=== PATIENT | female | born 1965 | race Caucasian/White ===

== ENCOUNTER 2016-10-23 07:27 | Inpatient (IN) ==
[2016-10-23] MEDS ORDERED: SODIUM CHLORIDE 0.9% 2,000 ML IV STA (07:47)
[2016-10-23] MEDS ORDERED: ONDANSETRON 4 MG/2 ML VIAL IV STA (07:47)
[2016-10-23] MEDS ORDERED: ONDANSETRON 4 MG/2 ML VIAL ONE (07:57)
[2016-10-23 08:13] LABS: Basophils # 0.1 10*3/uL (0.0-0.2); Basophils % 0.4 % (0.0-0.8); Hematocrit 46.7 VOL% (35.7-47.0); Hemoglobin 15.3 GM/DL (12.0-16.0); Immature Granulocytes % 0.5 %; Immature Granulocytes Absolute 0.07 #; Lymphocytes # 0.6 10*3/uL (1.4-4.0); Mean Corpuscular HGB Conc 32.8 GM/DL (32-36); Mean Corpuscular Hemoglobin 28 PG (27-34); Mean Corpuscular Volume 86.2 FL (87-102); Mean Platelet Volume 9.3 FL (9.6-12.0); Monocytes # 0.5 10*3/uL (0.11-0.8); Monocytes % 2.9 % (1.7-12.7); Neutrophils # 14.2 10*3/uL (1.4-7.4); Neutrophils % 92.2 % (38.7-73.9); Platelet Count 260 T/CUMM (130-400); Red Blood Count 5.42 MC/CUMM (3.8-5.5); Red Cell Distribution Width 12.4 % (9.3-17.3); White Blood Count 15.4 T/CUMM (4-12)
[2016-10-23 08:32] LABS: Band Neutrophils 1 % (0-10); Hypochromasia 1+; Lymphocytes 9 % (20-55); Platelet Estimate Normal; Segmented Neutrophils 89 % (50-85); Total Cells Counted 100
[2016-10-23 08:57] LABS: Albumin 3.9 G/DL (3.4-5.0); Bilirubin,Total 0.6 MG/DL (0.2-1.0); Calcium 9.7 MG/DL (8.5-10.1); Osmolality,Calculated 281.5 MOS/KG (273-304); Potassium 4.3 MMOL/L (3.5-5.1); Total Protein 7.6 G/DL (6.4-8.3)
[2016-10-23] MEDS ORDERED: LEVOFLOXACIN INJ 750 MG in PREMIX 1 EACH IV STA (09:22)
[2016-10-23] MEDS ORDERED: LEVOFLOXACIN INJ 150 ML IV ONE (09:37)
[2016-10-23 09:42] LABS: Apearance,Urine CLEAR (Clear); Bilirubin,Urine Negative (Negative); Blood, Urine Negative (Negative); Glucose,Urine (UA) Negative (Negative); Hyaline Casts,Urine 6 /LPF (0-3); Ketones,Urine Negative (Negative); Mucus,Urine Occasional /LPF (Occasional); Nitrite,Urine Negative (Negative); Protein,Urine Negative; RBC,Urine 1 /HPF (0-4); Urine Color Yellow (Yellow); Urine Urobilinogen < 2.0 EU/DL (0.2-1.0); WBC,Urine <1 /HPF (0-6)
--- NOTE | 2016-10-23 10:19 | Emergency Department Note ---
Hudson Estevez Jamie, am scribing for, and in the presence of, Francisco Hudson MD 07:31. Tristan Estevez Doug C, MD, personally performed the services described in this documentation, ascribed by Hiren Treviño in my presence, and it is both accurate and complete . Arrival - Arrival Stated Complaint: n/v/d Limitations: No Limitations Source: Patient, RN Notes Reviewed - History of Present Illness HPI Narrative: Patient is a 51-year-old white female presents to emergency room complaining of persistent nausea vomiting and diarrhea which began yesterday. Patient states her diarrhea is profuse she is uncertain of how many bowel movements she has had today. She denies any associated fever with this and has not really had any abdominal pain. She has not seen any blood or mucus in her stool. She has no history of any ill contacts and states she has not had any family history or personal history of inflammatory bowel disease patient states her appetite is diminished she has been unable to keep much of anything down. Onset (ago): day(s) (1) Consistency: constant Severity: moderate Allergies/Adverse Reactions: Allergies Allergy/AdvReac Type Severity Reaction Status Date / Time Penicillins Allergy Unknown Unknown/Unable Verified 03/24/15 08:16 to obtain Review of System - Review of System 12 point system: reviewed and no additional remarkable complaints except as stated - Review of System Constitutional: Absent: chills, diaphoresis, fever, weakness Eyes: Absent: vision change Respiratory: Absent: cough Cardiovascular: Absent: chest pain Gastrointestinal: Present: nausea, vomiting, diarrhea Musculoskeletal: Present: lower back pain. Absent: joint swelling Skin: Absent: rash, change in color Neurological: Absent: headache, weakness, numbness, confusion Hematological/Lymphatic: Absent: easy bleeding, easy bruising Medical,Surgical,& Family Hx - Medical History Endocrine: History of: Thyroid Disorder - Surgical History HEENT Surgeries: Surgical HX of: Thyroid Surgery Abdominal Surgeries: Surgical HX of: Appendectomy, Cholecystectomy Reproductive Surgeries: Surgical HX of;: Section - Family History Family History: Reports;: Family Cancer (Father of biliary cancer and mother of lung cancer.) Exam Vital Signs: Vital Signs Temperature 97.0 F L 10/23/16 07:35 Pulse Rate 101 H 10/23/16 08:15 Respiratory Rate 19 10/23/16 07:35 Blood Pressure 143/89 10/23/16 08:15 O2 Sat by Pulse Oximetry 96 10/23/16 08:15 - General General appearance: alert, in no apparent distress - Head Head exam: Present: atraumatic, normocephalic, normal inspection - Eye Eye exam: Present: normal appearance, PERRL, EOMI - ENT ENT exam: Present: normal exam, normal oropharynx, mucous membranes dry - Neck Neck exam: Present: normal inspection, full ROM - Chest Chest inspection: Present: normal inspection, symmetric chest wall rise - Respiratory Respiratory exam: Present: normal lung sounds bilaterally - Cardiovascular Cardiovascular exam: Present: regular rate, normal rhythm, normal heart sounds - Abdominal Exam Abdominal exam: Present: soft, normal bowel sounds - Extremities Exam Extremities exam: Present: normal inspection, full ROM - Neurological Exam Neurological exam: Present: alert, oriented X3, CN II-XII intact, reflexes normal - Psychiatric Psychiatric exam: Present: normal affect, normal mood - Skin Skin exam: Present: warm, dry, intact, normal color Course Course Narrative: Patient's clinical presentation, laboratory findings and response to IV fluids were discussed with Dr. Thao Phillips. Patient will be admitted to her services Results - Labs CBC & BMP: 10/23/16 07:46 10/23/16 07:46 Lab Results: I have reviewed the patients labs Disposition Clinical Impression: Acute gastroenteritis Case discussed with: patient Disposition: Still a Patient Condition: Stable Time of Disposition: 10:12
[2016-10-23] MEDS: LEVOFLOXACIN INJ 500 MG in PREMIX 1 EACH IV SCH (11:18)
[2016-10-23] MEDS: DEXTROSE 5% NACL 0.9% 1,000 ML IV SCH ×3 (11:18→22:28)
[2016-10-23] MEDS: ONDANSETRON 4 MG/2 ML VIAL IV PRN (11:18)
--- NOTE | 2016-10-23 11:20 | Internal Med History&Physical ---
Assessment and Plan (1) Hypertension Status: Chronic Current Visit: No Qualifiers: Hypertension type: essential hypertension Qualified Code(s): I10 - Essential (primary) hypertension (2) Acute gastroenteritis Status: Acute Current Visit: Yes History of Present Illness Chief complaint: acute diarrhea History of present illness: Ms. Verduzco is a 51 year old female patient of Dr. Fitzgerald with history of hypothyroidism, HTN, acid reflux, who presented to ER with severe diarrhea and was admitted to receive IV fluids. She was found to be tachycardic in ER. She denies any changes in diet or travel prior to her acute illness. Home Medications Medication Instructions Recorded Confirmed Type Estradiol Tab [Estrace Tab] 1 mg PO QAM 10/23/16 10/23/16 History Irbesartan [Avapro] 150 mg PO QAM 10/23/16 10/23/16 History Levothyroxine Tab [Synthroid Tab] 175 mcg PO DAILY@0700 10/23/16 10/23/16 History Ranitidine Tab [Zantac Tab] 150 mg PO BID 10/23/16 10/23/16 History Allergies Allergy/AdvReac Type Severity Reaction Status Date / Time Penicillins Allergy Unknown Unknown/Unable Verified 03/24/15 08:16 to obtain Medical,Surgical,& Family Hx - Medical History Cardio: History of: Hypertension Endocrine: History of: Thyroid Disorder Gastrointestinal: History of: GERD - Surgical History HEENT Surgeries: Surgical HX of: Thyroid Surgery Abdominal Surgeries: Surgical HX of: Appendectomy, Cholecystectomy Reproductive Surgeries: Surgical HX of;: Section - Family History Family History: Reports;: Family Cancer (Father of biliary cancer and mother of lung cancer.) - Social History Smoking Status: Never smoker Frequency of Alcohol Use: None Type of Drug Use: None Functional capacity: independent ambulation - Constitutional Constitutional: Present: chills, fatigue, malaise - Cardiovascular Cardiovascular: Present: palpitations - Gastrointestinal Gastrointestinal: Present: diarrhea - Musculoskeletal Musculoskeletal: Present: myalgias Exam - Constitutional Vitals: Period Temp Pulse Resp BP Sys/James Pulse Ox Last 24 Hr 112 18 155/99 96 General appearance: no acute distress - Head Head exam: Present: normocephalic - Eye Eye exam: Present: EOMI - Respiratory Respiratory exam: Present: clear to auscultation bilaterally - Cardiovascular Cardiovascular exam: Present: regular rate and rhythm - GI/Abdominal GI/Abdominal exam: Present: hyperactive bowel sounds, tenderness, soft - Extremities Exam Extremities exam: Absent: edema - Neurological Exam Neurological exam: Present: alert, oriented X3, CN II-XII intact - Psychiatric Psychiatric exam: Present: normal mood - Skin Skin exam: Present: dry Results - Labs CBC & BMP: 10/23/16 07:46 10/23/16 07:46
[2016-10-23] MEDS: ENOXAPARIN 40 MG/0.4 ML SYRINGE SUBCUT SCH (11:37)
[2016-10-23] MEDS: ACETAMINOPHEN 325 MG TABLET PO PRN (20:45)
[2016-10-23] MEDS: DOCUSATE SODIUM 100 MG CAPSULE PO SCH (21:28)
[2016-10-24] MEDS: ONDANSETRON 4 MG/2 ML VIAL IV PRN ×2 (02:05→23:18)
[2016-10-24] MEDS: DEXTROSE 5% NACL 0.9% 1,000 ML IV SCH ×7 (03:22→20:56)
[2016-10-24 07:04] LABS: Basophils % 0.3 % (0.0-0.8); Eosinophils % 0.1 % (0.00-10.9); Hematocrit 34.7 VOL% (35.7-47.0); Immature Granulocytes % 0.6 %; Immature Granulocytes Absolute 0.04 #; Lymphocytes # 0.7 10*3/uL (1.4-4.0); Lymphocytes % 9.8 % (21.3-54.2); Mean Corpuscular HGB Conc 32.3 GM/DL (32-36); Mean Corpuscular Hemoglobin 29 PG (27-34); Mean Corpuscular Volume 88.7 FL (87-102); Mean Platelet Volume 9.3 FL (9.6-12.0); Monocytes # 0.5 10*3/uL (0.11-0.8); Monocytes % 7.5 % (1.7-12.7); Neutrophils # 5.9 10*3/uL (1.4-7.4); Neutrophils % 81.7 % (38.7-73.9); Red Cell Distribution Width 12.9 % (9.3-17.3)
[2016-10-24 07:11] LABS: White Blood Count 7.2 T/CUMM (4-12)
[2016-10-24 07:12] LABS: Hemoglobin 11.2 GM/DL (12.0-16.0); Platelet Count 152 T/CUMM (130-400); Red Blood Count 3.91 MC/CUMM (3.8-5.5)
[2016-10-24 07:21] LABS: Calcium 6.9 MG/DL (8.5-10.1); Osmolality,Calculated 289.7 MOS/KG (273-304); Potassium 3.7 MMOL/L (3.5-5.1)
[2016-10-24] MEDS: DOCUSATE SODIUM 100 MG CAPSULE PO SCH ×2 (09:19→20:55)
[2016-10-24] MEDS: PANTOPRAZOLE 40 MG TABLET PO SCH (09:19)
[2016-10-24] MEDS: LEVOFLOXACIN INJ 500 MG in PREMIX 1 EACH IV SCH (10:07)
[2016-10-24] MEDS: ENOXAPARIN 40 MG/0.4 ML SYRINGE SUBCUT SCH (10:07)
--- NOTE | 2016-10-24 14:34 | Internal Med Progress Note ---
Assessment and Plan (1) Hypertension Status: Chronic Current Visit: No Qualifiers: Hypertension type: essential hypertension Qualified Code(s): I10 - Essential (primary) hypertension (2) Acute gastroenteritis Status: Acute Current Visit: Yes Internal Medicine - PN: Subj Interval history: Ms. Verduzco is a 51 year old female patient of Dr. Fitzgerald with history of hypothyroidism, HTN, acid reflux, who presented to ER with severe diarrhea and was admitted to receive IV fluids. She was found to be tachycardic in ER. She is feeling better today, Monday, but still having multiple episodes of diarrhea. Will continue IV fluids, but advance diet to soft solids. Exam (Progress Note) - Constitutional Vitals: Period Temp Pulse Resp BP Sys/James Pulse Ox Last 24 Hr 97.6 F-98.6 F 67-99 18-19 132-162/63-84 95-99 Exam: General appearance: no acute distress - Respiratory Respiratory exam: Present: clear to auscultation bilaterally - Cardiovascular Cardiovascular exam: Present: regular rate and rhythm - GI/Abdominal GI/Abdominal exam: Present: hyperactive bowel sounds, tenderness, soft - Extremities Exam Extremities exam: Absent: edema - Neurological Exam Neurological exam: Present: alert, oriented X3, CN II-XII intact - Psychiatric Psychiatric exam: Present: normal mood - Skin Skin exam: Present: dry Vitals reviewed. Results - Labs CBC & BMP: 10/24/16 05:45 10/24/16 05:45
[2016-10-24] MEDS: CALCIUM (CITRATE) 200 MG TABLET PO SCH (14:58)
[2016-10-24] MEDS: ACETAMINOPHEN 325 MG TABLET PO PRN (22:14)
[2016-10-25] MEDS: DEXTROSE 5% NACL 0.9% 1,000 ML IV SCH ×3 (02:49→13:42)
[2016-10-25] MEDS ORDERED: LEVOTHYROXINE 175 MCG TABLET PO SCH (07:00)
[2016-10-25 07:20] LABS: Alanine Aminotransferase 27 U/L (13-56); Albumin 2.5 G/DL (3.4-5.0); Alkaline Phosphatase 51 U/L (45-117); Aspartate Amino Transferase 29 U/L (0-37); Bilirubin,Total < 0.39 MG/DL (0.2-1.0); Blood Urea Nitrogen 5 MG/DL (7-18); Calcium 6.7 MG/DL (8.5-10.1); Glucose 113 MG/DL (74-106); Magnesium 2.1 MG/DL (1.8-2.4); Osmolality,Calculated 291.3 MOS/KG (273-304); Potassium 3.9 MMOL/L (3.5-5.1); Sodium 148 MMOL/L (136-145)
[2016-10-25] MEDS ORDERED: IRBESARTAN 150 MG TABLET PO SCH (09:00)
[2016-10-25] MEDS: CALCIUM (CITRATE) 200 MG TABLET PO SCH (09:21)
[2016-10-25] MEDS: PANTOPRAZOLE 40 MG TABLET PO SCH (09:21)
[2016-10-25] MEDS: DOCUSATE SODIUM 100 MG CAPSULE PO SCH (09:22)
[2016-10-25] MEDS: ENOXAPARIN 40 MG/0.4 ML SYRINGE SUBCUT SCH (10:14)
[2016-10-25] MEDS: LEVOFLOXACIN INJ 500 MG in PREMIX 1 EACH IV SCH (10:15)
--- NOTE | 2016-10-25 11:10 | Physician Query Form ---
CLICK EDIT DOCUMENT TO SELECT QUERY ANSWER --> OK --> SIGN Florinda Small RN Clinical Bilingual Social Worker W) [phone] (f) [phone] [email or web address]: Make your selection(s) from the choices in EACH section by typing an "x" and enter comments in the comment section. Please use your independent medical judgment in providing your response. This request does not imply that any particular answer is desired or expected. CLINICAL INDICATORS: (Providers should not edit this section) Based on documentation of "Persistent nausea and vomiting and diarrhea" "Acute gastroenteritis" "Admitted to receive IV Fluids" Creatinine from 1.10 to 0.60. GFR from 67 to 126. Treated with NS bolus followed by D5 NS infusion. Clarify which of the following most accurately represents the patient's renal status: ( ) Acute kidney injury (non-traumatic) ( ) Acute renal failure ( ) Acute renal failure with underlying Chronic Kidney Disease (CKD) - please provide stage below ( ) Acute renal failure with pathological renal lesion ( ) Acute renal failure with necrosis ( ) tubular ( ) medullary ( ) cortical ( ) CKD - please provide stage below ( ) End Stage Renal Disease ( ) Acute interstitial nephritis ( ) Hepatorenal syndrome (x ) Other, please specify: dehydration ( ) Clinically unable to determine Chronic Kidney Disease Stages Source: National Kid[employer] Foundation ( ) Stage I (eGFR > or = 90) ( ) Stage II (eGFR 60 - 89) ( ) Stage III (eGFR 30 - 59) ( ) Stage IV (eGFR 15 - 29) ( ) Stage V (eGFR < 15 or dialysis) COMMENTS: Use of terms such as suspected, likely, or probable (associated with a specific diagnosis that is being evaluated, monitored, or treated as if it exists) are acceptable and can be restated in the discharge summary if not ruled out. MTDD
[2016-10-25 16:36] VITALS: BP 127/72
--- NOTE | 2016-10-25 18:55 | Discharge Summary ---
Hospital Course - Hospital Course Hospital Course: Ms. Verduzco is a 51 year old female patient of Dr. Fitzgerald with history of hypothyroidism, HTN, acid reflux, who presented to ER with severe diarrhea and was admitted to receive IV fluids. She was found to be tachycardic in ER. She responded well to fluids and diarrhea gradually resolved over the last 24 hours. She is ready for discharge to home. Diagnosis - Discharge Diagnosis (1) Hypertension Status: Chronic (2) Acute gastroenteritis Status: Resolved Specialty Discharge - Follow Up or Referrals Discharge Plan - Discharge Data Disposition: Disch To Home/Self Care Condition at Discharge: Stable Discharge Diet: other (soft solids and fluids another day or two) Activity: resume usual activities as tolerated - Discharge Medications New Acetaminophen Tab [Tylenol Tab] 650 mg PO Q6H PRN #0 tablet PRN Reason: Fever > 100.4 Or Headache Calcium (Citrate) [Citracal] 400 mg PO DAILY tablet Docusate Sodium Cap [Colace Cap] 100 mg PO BID capsule Continue Levothyroxine Tab [Synthroid Tab] 175 mcg PO DAILY@0700 Irbesartan [Avapro] 150 mg PO QAM Estradiol Tab [Estrace Tab] 1 mg PO QAM Ranitidine Tab [Zantac Tab] 150 mg PO BID - Follow Up or Referral Follow Up: Morgan Fitzgerald MD [Physician] - - Forms/Instructions Instructions: Gastroenteritis (DC) Additional Discharge Instructions: Follow up with Dr. Fitzgerald within 1-2 weeks. Repeat CMP at [facility] on morning for Dr. Fitzgerald to see. Exam - Constitutional Vitals: Period Temp Pulse Resp BP Sys/James Pulse Ox Last 24 Hr 97.5 F-98.1 F 58-68 18-20 112-149/63-78 95-99 Exam: General appearance: no acute distress - Respiratory Respiratory exam: Present: clear to auscultation bilaterally - Cardiovascular Cardiovascular exam: Present: regular rate and rhythm - GI/Abdominal GI/Abdominal exam: Present: normal bowel sounds, tenderness, soft - Extremities Exam Extremities exam: Absent: edema - Neurological Exam Neurological exam: Present: alert, oriented X3, CN II-XII intact - Psychiatric Psychiatric exam: Present: normal mood - Skin Skin exam: Present: dry Vitals reviewed. Discharge Results Labs on day of discharge: Labs from last 24 hours 10/25/16 06:06 Sodium 148 H Potassium 3.9 Chloride 114 H Carbon Dioxide 22 Anion Gap 15.9 H BUN 5 L Creatinine 0.60 GFR Calculation 126 BUN/Creatinine Ratio 8.00 Glucose 113 H Calculated Osmolality 291.3 Calcium 6.7 L Magnesium 2.1 Total Bilirubin < 0.39 AST 29 ALT 27 Alkaline Phosphatase 51 Total Protein 5.0 L Albumin 2.5 L Globulin 2.5 Albumin/Globulin Ratio 1.0 L TSH 3rd Generation 3.250 DS: Provider Date of admission: 10/23/16 10:13 Primary care physician: . No PCP Attending physician on admission: Thao Phillips DO Consults: 10/23/16 10:39 Consult to Pharmacy [CONS] Routine Reason for Pharmacy Consult: Adjust Meds Renal Funct Discharging clinician: Thao Phillips DO Expected date of discharge: 10/25/16
== END 2016-10-25 19:45 | disposition home or self-care (01) | DRG 392 ==
LOC: N.ED 07:27 → N.EDINP 10:13 → N.5E 10:46
PROVIDERS: ADMIT Internal Medicine; ATTEND Internal Medicine

== ENCOUNTER 2017-06-29 15:00 | Observation (INO) ==
[2017-06-29 15:58] LABS: Basophils # 0.1 10*3/uL (0.0-0.2); Basophils % 0.5 % (0.0-0.8); Eosinophils % 0.4 % (0.00-10.9); Hematocrit 36.5 VOL% (35.7-47.0); Hemoglobin 12.4 GM/DL (12.0-16.0); Immature Granulocytes % 0.3 %; Immature Granulocytes Absolute 0.03 #; Lymphocytes # 1.8 10*3/uL (1.4-4.0); Lymphocytes % 17.9 % (21.3-54.2); Mean Corpuscular Hemoglobin 29 PG (27-34); Mean Corpuscular Volume 86.3 FL (87-102); Mean Platelet Volume 9.6 FL (9.6-12.0); Monocytes # 0.5 10*3/uL (0.11-0.8); Monocytes % 5.4 % (1.7-12.7); Neutrophils # 7.4 10*3/uL (1.4-7.4); Neutrophils % 75.5 % (38.7-73.9); Platelet Count 241 T/CUMM (130-400); Red Blood Count 4.23 MC/CUMM (3.8-5.5); Red Cell Distribution Width 12.7 % (9.3-17.3); White Blood Count 9.8 T/CUMM (4-12)
[2017-06-29 16:07] LABS: INR 0.9
[2017-06-29 16:27] LABS: Alanine Aminotransferase 28 U/L (13-56); Albumin 3.6 G/DL (3.4-5.0); Alkaline Phosphatase 71 U/L (45-117); Aspartate Amino Transferase 22 U/L (0-37); Bilirubin,Total < 0.39 MG/DL (0.2-1.0); Blood Urea Nitrogen 21 MG/DL (7-18); Calcium 9.2 MG/DL (8.5-10.1); Glucose 93 MG/DL (74-106); Magnesium 2.3 MG/DL (1.8-2.4); Osmolality,Calculated 277.7 MOS/KG (273-304); Potassium 4.4 MMOL/L (3.5-5.1); Sodium 138 MMOL/L (136-145); Total Protein 6.8 G/DL (6.4-8.3)
[2017-06-29 17:01] LABS: Apearance,Urine CLEAR (Clear); Bilirubin,Urine Negative (Negative); Blood, Urine Negative (Negative); Glucose,Urine (UA) Negative (Negative); Ketones,Urine Negative (Negative); Nitrite,Urine Negative (Negative); Protein,Urine Negative; RBC,Urine <1 /HPF (0-4); Squamous Epithelial Cell,Urine Occasional /HPF (0-10); Urine Color Straw (Yellow); Urine Specific Gravity 1.005 (1.001-1.035); Urine Urobilinogen < 2.0 EU/DL (0.2-1.0); WBC,Urine 2 /HPF (0-6)
[2017-06-29] MEDS ORDERED: ASPIRIN 325 MG TABLET PO STA (17:01)
[2017-06-29] MEDS ORDERED: NITROGLYCERIN 2% OINT 1 INCH/GM PACK TOP STA (17:01)
[2017-06-29] MEDS ORDERED: MORPHINE 2 MG/1 ML SYRINGE IV STA (17:01)
[2017-06-29] MEDS ORDERED: ALUM/MAG/SIMETH/LIDO VISC 1:1 30 ML BOTTLE PO STA (17:01)
[2017-06-29] MEDS ORDERED: ONDANSETRON 4 MG/2 ML VIAL IV STA (17:01)
[2017-06-29] MEDS ORDERED: ENOXAPARIN 100 MG/ML SYRINGE SUBCUT STA (17:17)
[2017-06-29] MEDS ORDERED: ENOXAPARIN 120 MG/0.8 ML SYRINGE SUBCUT ONE (17:28)
[2017-06-29] MEDS ORDERED: ONDANSETRON 4 MG/2 ML VIAL ONE (17:28)
[2017-06-29] MEDS ORDERED: NITROGLYCERIN 2% OINT 1 INCH/GM PACK TOP ONE (17:28)
[2017-06-29] MEDS ORDERED: MORPHINE 2 MG/1 ML SYRINGE ONE (17:29)
[2017-06-29] MEDS ORDERED: ALUM/MAG/SIMETH/LIDO VISC 1:1 30 ML BOTTLE PO ONE (17:29)
[2017-06-29] MEDS ORDERED: ASPIRIN 325 MG TABLET ONE (17:29)
[2017-06-29] MEDS ORDERED: POTASSIUM CHLORIDE 20 MEQ TABLET PO PRN ×2 (18:25)
[2017-06-29] MEDS ORDERED: INSULIN REGULAR 100 UNIT/ML SUBCUT ONE (18:25)
[2017-06-29] MEDS ORDERED: DEXTROSE 50% 25 GM/50 ML VIAL IV PRN (18:42)
[2017-06-29] MEDS ORDERED: GLUCAGON 1 MG VIAL IM PRN (18:42)
[2017-06-29 18:52] LABS: VLDL CHOLESTEROL 57.2 MG/DL
[2017-06-29] MEDS: FAMOTIDINE 20 MG TABLET PO SCH (22:00)
[2017-06-29] MEDS: SODIUM CHLORIDE 0.45% 1,000 ML IV SCH (22:01)
[2017-06-29] MEDS: INSULIN REGULAR 100 UNIT/ML SUBCUT SCH (22:02)
[2017-06-29] MEDS: ACETAMINOPHEN 500 MG TABLET PO PRN (22:36)
[2017-06-30 05:10] LABS: Basophils % 0.7 % (0.0-0.8); Eosinophils % 0.7 % (0.00-10.9); Hematocrit 34.8 VOL% (35.7-47.0); Hemoglobin 11.5 GM/DL (12.0-16.0); Immature Granulocytes % 0.3 %; Immature Granulocytes Absolute 0.02 #; Lymphocytes # 1.9 10*3/uL (1.4-4.0); Lymphocytes % 31.3 % (21.3-54.2); Mean Corpuscular Hemoglobin 29 PG (27-34); Mean Corpuscular Volume 87.2 FL (87-102); Mean Platelet Volume 10.1 FL (9.6-12.0); Monocytes # 0.4 10*3/uL (0.11-0.8); Monocytes % 6.5 % (1.7-12.7); Neutrophils # 3.6 10*3/uL (1.4-7.4); Neutrophils % 60.5 % (38.7-73.9); Platelet Count 201 T/CUMM (130-400); Red Blood Count 3.99 MC/CUMM (3.8-5.5); Red Cell Distribution Width 12.8 % (9.3-17.3)
[2017-06-30 05:43] LABS: Bilirubin,Total 0.6 MG/DL (0.2-1.0); Calcium 8.8 MG/DL (8.5-10.1); Magnesium 2.4 MG/DL (1.8-2.4); Osmolality,Calculated 283.1 MOS/KG (273-304); Potassium 4.7 MMOL/L (3.5-5.1); Total Protein 5.8 G/DL (6.4-8.3)
[2017-06-30] MEDS ORDERED: LEVOTHYROXINE 175 MCG TABLET PO SCH (06:30)
[2017-06-30] MEDS: INSULIN REGULAR 100 UNIT/ML SUBCUT SCH ×3 (08:24→15:47)
[2017-06-30] MEDS ORDERED: ESTRADIOL 1 MG TABLET PO SCH (09:00)
[2017-06-30] MEDS ORDERED: IRBESARTAN 150 MG TABLET PO SCH (09:00)
[2017-06-30] MEDS ORDERED: ASPIRIN EC 81 MG TABLET PO SCH (09:00)
[2017-06-30] MEDS: ACETAMINOPHEN 500 MG TABLET PO PRN (09:06)
[2017-06-30] MEDS: FAMOTIDINE 20 MG TABLET PO SCH (09:16)
[2017-06-30] MEDS ORDERED: METOPROLOL TARTRATE 25 MG TABLET PO SCH (10:00)
[2017-06-30] MEDS: SODIUM CHLORIDE 0.45% 1,000 ML IV SCH (15:47)
[2017-06-30 15:58] VITALS: BP 118/69
== END 2017-06-30 17:00 | disposition home or self-care (01) ==
LOC: N.ED 15:00 → N.EDINP 17:44 → INTOOBSV 17:44 → N.EDINP 18:11 → N.TELEN 18:39
PROVIDERS: ADMIT Internal Medicine Cardiovascular Disease; ATTEND Internal Medicine Cardiovascular Disease